=== PATIENT | female | born 1995 | race Caucasian/White ===

== ENCOUNTER 2017-01-24 12:14 | Emergency (ER) | payer BC ==
[2017-01-24 12:54] VITALS: BP 105/55
--- NOTE | 2017-01-24 13:58 | UC ---
Skin Complaint HPI - HPI Summary HPI Summary: 21 yo female c/o L earlobe redness, pain progressively worse x 1 week. No fever / chills. Has several piercings, the affected area is not a new piercing (x several years). No fever / chills. No sores or rashes elsewhere. [facility]. - History of Current Complaint Chief Complaint: UCSkin Time Seen by Provider: 01/24/17 13:41 Stated Complaint: LEFT EAR COMPLAINT Hx Obtained From: Patient Hx Last Menstrual Period: 01/08/17 - Allergy/Home Medications Allergies/Adverse Reactions: Allergies Allergy/AdvReac Type Severity Reaction Status Date / Time No Known Allergies Allergy Verified 01/24/17 12:44 Review of Systems Constitutional: Negative Skin: Other - see hpi Eyes: Negative ENT: Negative - see hpi Respiratory: Negative Cardiovascular: Negative Gastrointestinal: Negative Genitourinary: Negative Motor: Negative Neurovascular: Negative Musculoskeletal: Negative Neurological: Negative Psychological: Negative Is Patient Immunocompromised?: No All Other Systems Reviewed And Are Negative: Yes PMH/Surg Hx/FS Hx/Imm Hx Previously Healthy: Yes - no dm - Surgical History Surgical History: None - Social History Alcohol Use: Occasionally Substance Use Type: None Smoking Status (MU): Never Smoked Tobacco Physical Exam Triage Information Reviewed: Yes Appearance: Well-Appearing, Well-Nourished Vital Signs: Initial Vital Signs Temp 98.2 F 01/24/17 12:50 Pulse 57 01/24/17 12:50 Resp 16 01/24/17 12:50 BP 105/55 01/24/17 12:50 Pulse Ox 100 01/24/17 12:50 Vital Signs Reviewed: Yes Eye Exam: Normal ENT: Positive: Other: - Left ear lobe with multiple piercings, there is one particular piercing with nearby swelling, redness. The earlobe is swollen, but redness does not extend past earlobe, nor does it expand to upper tragus. EAC' s au wnl. TM's ok. Oroph benign. Neck exam: Normal Neck: Positive: Supple, Nontender, No Lymphadenopathy Respiratory Exam: Normal - no tachypnea, no dyspnea Cardiovascular Exam: Normal - heart rate regular Abdominal Exam: Normal - no c/o's Musculoskeletal Exam: Normal - moves all 4 ext's. Neurological Exam: Normal - nonfocal, detailed neuro not performed Psychological Exam: Normal - conversing easily and appropriately Skin Exam: Other - see ENT. o/w no issues visualized or reported. Course/Dx - Course Course Of Treatment: No new problems in CCC. Reviewed wound care. Reviewed upcoming earing suggestions (ie avoid earrings until healed, avoid earing to affected area at least 2 months). Questions answered to the best of my ability. Wx bactrim ds, mupirocin. - Diagnoses Provider Diagnoses: L earlobe cellulitis, infected wound (piercing site) Discharge - Discharge Plan Condition: Stable Disposition: HOME Prescriptions: Mupirocin 2% OINT* [Bactroban 2 % Oint*] 1 applic TOPICAL BID #1 tube Sulfamethox/Trimethoprim DS* [Bactrim DS 800/160 TAB*] 1 tab PO BID #20 tab Patient Education Materials: Cellulitis (ED) Additional Instructions: Avoid astringents. Ok to shower, pat dry. Thin layer antibiotic ointment 2x / day x 7 days. Bandage ok, but not necessary. If you place a bandaid - NOT "air-tight." Follow up primary care physician, per routine. Seek medical attention for worse or new problems in the meantime.
== END 2017-01-24 14:16 | disposition home or self-care (01) ==
LOC: UCCORT 12:14
DX: S01.302A Unspecified open wound of left ear, initial encounter (principal); H60.12 Cellulitis of left external ear; X58.XXXA Exposure to other specified factors, initial encounter; Y93.9 Activity, unspecified; Y92.9 Unspecified place or not applicable
CPT/HCPCS: 99202; G0463